=== PATIENT | female | born 1950 | race Caucasian/White ===

== ENCOUNTER → 2016-06-18 | Outpatient (CLI) | payer MEDICARE ==
--- NOTE | 2016-06-18 11:07 | WWHP ---
DATE OF SERVICE: 06/18/2016 CHIEF COMPLAINT: The patient is here for her routine gynecologic exam and mammogram. HPI: This is a 66-year-old, G2, P2 with an LMP of 2002. She is without gynecologic complaints and denies any postmenopausal bleeding. She previously saw Dr. Boland for her gynecologic care and it has been about 2 to 3 years since she had seen him. PAST MEDICAL HISTORY: Elevated cholesterol and seasonal allergies. MEDICATIONS: 1. Lipitor 10 mg daily. 2. Elvi p.r.n. ALLERGIES: No known drug allergies. PAST SURGICAL HISTORY: Left inguinal hernia repair in 2009, breast implants at age 34 and she believes they are silicone, colonoscopy 2012 and this was her second one, tonsillectomy in her 20s. PAST OB HISTORY: Two vaginal deliveries. PAST PERSONNEL RECORDS CLERK HISTORY: She has no history of STDs. She has been menopausal since 2002. SOCIAL HISTORY: She quit smoking in 1984. She has about 5 alcoholic drinks per week and denies drug use. She has been since 1968 and is retired. FAMILY HISTORY: Father had an IA and mother had CHF. She has no family history of cancer of the breast, uterus, ovaries or colon. REVIEW OF SYSTEMS: She believes she gained about 5 pounds over the last year. She denies respiratory, cardiac, or GI problems. PHYSICAL EXAM: Blood pressure 134/79. Height 5 feet 5 inches. Weight 155 pounds. Temperature 96.1, pulse 66. This a well-developed, well-nourished white female who is alert and oriented x3 in no acute distress. HEENT is within normal limits. NECK: Supple without mass or thyromegaly. CHEST AND LUNGS: Clear to auscultation. HEART: Regular rate and rhythm. Breasts are consistent with bilateral implants. The left breast implant is slightly firmer than the right one. She states she has noticed this. There are no palpable masses or tenderness and is no nipple discharge. Axillary exam is negative for adenopathy. BACK: Negative for CVA tenderness. ABDOMEN: Soft, nontender, without palpable masses. PELVIC EXAM: External genitalia reveals mild to moderate atrophy without lesions. Cervix and vagina reveal moderate atrophy without lesions. There is no evidence of prolapse. Bimanual exam is negative for mass. There is slight tenderness at the right inguinal hernia incision area. There does not seem to be any pelvic tenderness. The uterus is midposition and nongravid size. Rectovaginal exam is negative mass or tenderness and is negative for occult blood. EXTREMITIES: Nontender. IMPRESSION: 1. A 66-year-old menopausal female with normal gynecologic exam. 2. History of breast implants. PLAN: 1. Pap smear was performed. 2. Self breast examination was discussed. 3. Mammogram will be done today. 4. Osteoporosis prevention was discussed. I have recommended bone density screening since she states her last one was about 10 years ago. An order slip was given to patient for this. 5. She will return in one year.
--- NOTE | 2016-06-19 07:51 | MM ---
Reason for exam: screening (asymptomatic). Last mammogram was performed 1 year and 11 months ago. History: Patient is postmenopausal. Retro-pectoral silicone gel implants in both breasts, 1987. Physical Findings: A clinical breast exam by your physician is recommended on an annual basis and results should be correlated with mammographic findings. MG 3D Screen Mammo Imp/Cad Bilateral CC and MLO view(s) were taken. Prior study comparison: July 07, 2014, bilateral MG screening mammo implant/CAD. February 03, 2012, CAD bilateral diagnostic mammogram. The breast tissue is heterogeneously dense. This may lower the sensitivity of mammography. No suspicious calcifications are seen. There is chronic nodularity in the right breast. There is no dominant lesion. Bilateral breast implants with left breast appearing ruptured. This finding is changed when compared with previous exams. ASSESSMENT: Benign, BI-RAD 2 RECOMMENDATION: Routine screening mammogram of both breasts in 1 year.
== END | disposition home or self-care (01) ==
LOC: WWCWWP 09:06
PROVIDERS: ATTEND Obstetrics & Gynecology
DX: Z12.31 Encounter for screening mammogram for malignant neoplasm of breast (principal)
CPT/HCPCS: 77063; G0202

== ENCOUNTER → 2016-07-22 | Outpatient (CLI) | payer MEDICARE ==
[2016-07-22 15:36] LABS: Basophils % (A) 0 %; CH 29.9; CHCM 32.7; Eosinophils # (A) 0.1 k/uL (0-0.7); Eosinophils % (A) 1 %; HCT 46.1 % (34.0-46.0); HDW 2.27; HGB 15.1 gm/dL (11.4-16.0); Luc % (Auto) 3; Lymphocytes # (A) 3.1 k/uL (1.0-4.8); Lymphocytes % (A) 34 %; MCHC 32.7 g/dL (31.0-37.0); MCV 91.7 fL (80.0-100.0); Mean Platelet Volume 6.7; Monocytes # (A) 0.7 k/uL (0-1.0); Monocytes % (A) 7 %; Neutrophils % (A) 54 %; RBC 5.03 m/uL (3.80-5.40); RDW 13.2 % (11.5-15.5); WBC 9.2 k/uL (3.8-10.6); WBC (Perox) 8.88
== END | disposition home or self-care (01) ==
LOC: LABPAT 15:10
PROVIDERS: ATTEND Obstetrics & Gynecology
DX: Z01.810 Encounter for preprocedural cardiovascular examination (principal); Z01.818 Encounter for other preprocedural examination; Z01.812 Encounter for preprocedural laboratory examination; R87.613 High grade squamous intraepithelial lesion on cytologic smear of cervix (HGSIL)
CPT/HCPCS: 85025; 93005

== ENCOUNTER 2016-08-06 08:22 | Day surgery (SDC) | payer MEDICARE ==
[2016-08-01 14:05] VITALS: BMI 24.2
[~2016-08-06 08:22] MED LIST: DEXAMETHASONE SOD PHOSPHATE 10 MG/ML 1 ML VIAL IV ONE; HYDROmorphone 1 MG/ML 1 ML SYRINGE IVP PRN; LACTATED RINGERS 1,000 ML IV SCH; MIDAZOLAM 2 MG/2 ML VIAL IV PRN; ONDANSETRON 4 MG/2 ML VIAL IVP ONE; Pre Op ABX Message 1 EACH MISC MISCELLANE ONE
[2016-08-06] MEDS ORDERED: LIDOCAINE 1% 20 ML VIAL (10MG/ML) FOR IV START INTRADERMA ONE (09:10)
[2016-08-06] MEDS ORDERED: SIMETHICONE 80 MG CHEWABLE PO PRN (09:39)
[2016-08-06] MEDS ORDERED: ONDANSETRON 4 MG/2 ML VIAL IVP PRN (09:39)
[2016-08-06] MEDS ORDERED: KETOROLAC 30 MG/ML 1 ML VIAL IVP PRN (09:39)
[2016-08-06] MEDS ORDERED: METOCLOPRAMIDE 5 MG/ML 2 ML VIAL IVP PRN (09:39)
[2016-08-06] MEDS ORDERED: IBUPROFEN 600 MG TAB PO PRN (09:39)
[2016-08-06] MEDS ORDERED: Acetaminophen-Codeine 300-30mg TAB PO PRN ×2 (09:39)
[2016-08-06] MEDS ORDERED: diphenhydrAMINE 50 MG/ML 1 ML VIAL IVP PRN (09:39)
[2016-08-06] MEDS ORDERED: PROPOFOL 10 MG/ML 20 ML VIAL IV ONE (09:40)
[2016-08-06] MEDS ORDERED: LIDOCAINE 1% INJ 10MG/ML (20 ML MDV) ONE (09:40)
[2016-08-06] MEDS ORDERED: KETOROLAC 30 MG/ML 1 ML VIAL ONE (09:40)
[2016-08-06] MEDS ORDERED: fentaNYL (PF) 50 MCG/ML 2 ML AMP ONE (09:40)
[2016-08-06] MEDS ORDERED: LACTATED RINGERS 1,000 ML IV SCH (09:45)
[2016-08-06] MEDS ORDERED: IODINE/POTASS IOD (LUGOLS) BTL TOPICAL ONE (09:55)
[2016-08-06] MEDS ORDERED: FERRIC SUBSULFATE (MONSELS) JAR TOPICAL ONE (09:59)
--- NOTE | 2016-08-06 10:12 | P.OP ---
Date of Procedure: 08/06/16 Preoperative Diagnosis: #1. Endocervical TERESA 2-3 Postoperative Diagnosis: Same Procedure(s) Performed: #1. Cold knife conization of the cervix Implants: Anesthesia: other (Gen. by LMA) Surgeon: Keegan Boland Estimated Blood Loss (ml): 10 IV fluids (ml): 400 Urine output (ml): 20 Pathology: other (Cervical cone, incidentally opened at 9:00) Condition: stable Disposition: PACU Indications for Procedure: Operative Findings: The cervix was noted to be relatively flush with the vaginal apex consistent with her postmenopausal status. Staining with Lugol's iodine failed to demonstrate any nonstaining tissue. A cervical cone was taken to a depth of approximately 2 cm x 1.5 cm wide the. The cone was taken intact but incidentally opened during removal at 9:00. Description of Procedure: The patient was prepped and draped in usual fashion after general anesthesia was administered by the anesthesiologist. A weighted speculum was placed and the bladder drained of approximately 20 mL of clear liane urine. The cervix was grasped at the anterior lip with a single-tooth tenaculum and cervical stay sutures placed from 10:00 to 8:00 at the cervicovaginal junction and 2:00 to 4: 00 where they were firmly tied down using 0 Vicryl. The cervix was stained with Lugol's iodine and there was noted to be no nonstaining areas. A uterine sound was placed through the cervix to the fundus of the uterus and sounded to approximately 7-8 cm. This was used as a guide for the scalpel to create a cone -shaped area around the cervix to a depth of approximately 2 cm. Once this was created, the sound was removed and the cone grasped anterior to posterior with an Allis clamp. It was then divided at its base of. It did appear to be to a depth of at least 2 cm with a width of approximately 1/2 cm in either direction. Examination of the specimen after removal demonstrated that it had been incidentally opened at 9:00. The base of the cone was then thoroughly cauterized with excellent hemostasis. One application of Monsel's solution was used as well at which time there was no ongoing bleeding. The cervical stay sutures were left in place but trimmed short. Estimated blood loss for the case was 10 mL or less. There were no complications. All sponge, instrument, and needle counts were correct. The patient tolerated the procedure well and proceeded to the recovery room in stable condition.
[2016-08-06 10:22] VITALS: TEMP 97.5
[2016-08-06 11:27] VITALS: BP 128/66; PULSE 60; RESP 18
== END 2016-08-06 11:21 | disposition home or self-care (01) ==
LOC: OR 08:22
PROVIDERS: ATTEND Obstetrics & Gynecology
DX: R87.613 High grade squamous intraepithelial lesion on cytologic smear of cervix (HGSIL) (principal); Z87.891 Personal history of nicotine dependence
CPT/HCPCS: 88307; 57520; J2250; J1100; J2405; J2001; J3010; J1885; J2704

== ENCOUNTER → 2017-08-06 | Outpatient (CLI) | payer MEDICARE ==
--- NOTE | 2017-08-06 08:04 | US ---
EXAMINATION TYPE: US duplex aorta DATE OF EXAM: 08/06/2017 COMPARISON: NONE CLINICAL HISTORY: Z13.6 SCREENING FOR CARDIOVASCULAR DX. Family history of AAA EXAM MEASUREMENTS: Abdominal Aorta: Proximal: 2.1 x 2.3 Mid: 1.8 x 1.9 Distal: 1.6 x 1.5 Bifurcation: Right: 1.0 x 0.7 Left: 1.0 x 0.9 IMPRESSION: Some atherosclerotic changes visualized. No sonographic evidence for AAA.
--- NOTE | 2017-08-06 11:26 | BD ---
EXAMINATION TYPE: Axial Bone Density DATE OF EXAM: 08/06/2017 COMPARISON: NONE CLINICAL HISTORY: Z78.0 Post menopausal State Height: 65 IN Weight: 149 LBS RISK FACTORS HISTORY OF: Active: YES Postmenopausal woman: AGE 52 EXAM MEASUREMENTS: Bone mineral densitometry was performed using the [employer] System. Bone mineral density as measured about the Lumbar spine is: ----- L1-L4(G/cm2): 1.322 T Score Values are as follows: ----- L2: 0.8 ----- L3: 1.7 ----- L4: 2.0 ----- L1-L4: 1.2 Bone mineral density BASELINE Bone mineral density about the R hip (g/cm2): 0.911 Bone mineral density about the L hip (g/cm2): 0.907 T Score values are as follows: -----R Neck: -0.9 -----L Neck: -0.9 -----R Total: -0.6 -----L Total: -0.8 Bone mineral density BASELINE IMPRESSION: No evidence for osteoporosis or osteopenia NOTE: T-SCORE=SD OF THE YOUNG ADULT MEAN.
--- NOTE | 2017-08-07 13:48 | MM ---
Reason for exam: screening (asymptomatic). Last mammogram was performed 1 year and 2 months ago. History: Patient is postmenopausal. Retro-pectoral silicone gel implants in both breasts, 1987. Physical Findings: A clinical breast exam by your physician is recommended on an annual basis and results should be correlated with mammographic findings. MG 3D Screen Mammo Imp/Cad Bilateral CC, MLO, and ID view(s) were taken. Prior study comparison: June 18, 2016, bilateral MG 3d screen mammo imp/cad. July 07, 2014, bilateral MG screening mammo implant/CAD. The breast tissue is heterogeneously dense. This may lower the sensitivity of mammography. Bilateral implants are intact. Stellate density upper outer right breast 4.8cm from nipple. This finding is changed when compared with previous exams. ASSESSMENT: Incomplete: need additional imaging evaluation, BI-RAD 0 RECOMMENDATION: Special view mammogram of the right breast. If lesion persists on supplemental views, image directed ultrasound is recommended. [facility] will attempt to contact patient to return for supplemental views and ultrasound if indicated.
== END | disposition home or self-care (01) ==
LOC: RADUSWWP 07:28
PROVIDERS: ATTEND Family Medicine
DX: Z12.31 Encounter for screening mammogram for malignant neoplasm of breast (principal); I70.0 Atherosclerosis of aorta; Z78.0 Asymptomatic menopausal state
CPT/HCPCS: 77063; 77067; 77080; 93979

== ENCOUNTER → 2017-08-12 | Outpatient (CLI) | payer MEDICARE ==
--- NOTE | 2017-08-12 10:50 | MM ---
Reason for exam: additional evaluation requested from abnormal screening. Last mammogram was performed less than 1 month ago. History: Patient is postmenopausal. Retro-pectoral silicone gel implants in both breasts, 1987. Physical Findings: Nurse did not find any significant physical abnormalities on exam. MG 3D Work Up W/Cad W/Imp RT Spot compression CC, spot compression MLO, ML, and ID view(s) were taken of the right breast. Prior study comparison: August 06, 2017, bilateral MG 3d screen mammo imp/cad. June 18, 2016, bilateral MG 3d screen mammo imp/cad. The breast tissue is heterogeneously dense. This may lower the sensitivity of mammography. Benign appearing calcifications in the right breast. No significant changes when compared with prior studies. ASSESSMENT: Probably benign, BI-RAD 3 RECOMMENDATION: Follow-up diagnostic mammogram of the right breast in 6 months.
== END | disposition home or self-care (01) ==
LOC: RADMAMWWP 08:16
PROVIDERS: ATTEND Family Medicine
DX: R92.8 Other abnormal and inconclusive findings on diagnostic imaging of breast (principal)
CPT/HCPCS: 77065; G0279; 77061

== ENCOUNTER 2017-10-15 12:14 | Day surgery (SDC) | payer MEDICARE ==
[2017-10-15 12:42] VITALS: RESP 16
[2017-10-15] MEDS ORDERED: ALPRAZolam 0.25 MG TAB PO STA (12:45)
--- NOTE | 2017-10-15 14:18 | US ---
ULTRASOUND GUIDED FNA THYROID BIOPSY: CLINICAL HISTORY: Request for FNA of the 1.1 cm left, 2.2 cm right, 2.4 cm left thyroid nodule FINDINGS: The procedure was explained to the patient. The risks, complications, benefits and alternatives were discussed and any questions were answered. Informed consent was obtained. Patient was placed supin e on the ultrasound table and prepped and draped in the usual sterile fashion. Utilizing a 25 gauge needle, five passes were made into the 3 requested thyroid nodules. Patient was stable throughout the procedure. Pathology is pending. All elements of maximal barrier technique were utilized. IMPRESSION: 1. Successful ultrasound guided FNA thyroid biopsy.
[2017-10-15 14:27] VITALS: BP 136/68; PULSE 58
== END 2017-10-15 14:00 | disposition home or self-care (01) ==
LOC: RADPROMAIN 12:14
PROVIDERS: ATTEND Otolaryngology Plastic Surgery within the Head & Neck
DX: E04.2 Nontoxic multinodular goiter (principal)
CPT/HCPCS: 10022; 36415; 76942; 88173; 88305

== ENCOUNTER → 2017-10-29 | Outpatient (CLI) | payer MEDICARE ==
--- NOTE | 2017-10-29 16:21 | US ---
EXAMINATION TYPE: US thyroid st tissue head/neck DATE OF EXAM: 10/29/2017 COMPARISON: Us thyroid CLINICAL HISTORY: Cervical lymphadenopathy R59.0. Patient diagnosed with papillary CA thyroid from re cent thyroid FNA here; no enlarged palpable nodes per patient Bilateral neck scanned: multiple small lymph nodes are seen superior and lateral to bilateral thyroid gland with largest noted superior to left thyroid = 0.9 x 0.6 x 0.3cm. IMPRESSION: Cervical lymph nodes as noted.
== END | disposition home or self-care (01) ==
LOC: RADUSMAIN 15:35
PROVIDERS: ATTEND Otolaryngology Plastic Surgery within the Head & Neck
DX: R59.0 Localized enlarged lymph nodes (principal)
CPT/HCPCS: 76536

== ENCOUNTER → 2018-02-12 | Outpatient (CLI) | payer MEDICARE ==
--- NOTE | 2018-02-12 11:37 | MM ---
Reason for exam: follow-up at short interval from prior study. Last mammogram was performed 6 months ago. History: Patient is postmenopausal and has history of other cancer at age 67. Retro-pectoral silicone gel implants in both breasts, 1988. Physical Findings: Nurse did not find any significant physical abnormalities on exam. MG 3D Diag Mammo Imp W/Cad RT CC, MLO, and ID view(s) were taken of the right breast. Prior study comparison: August 12, 2017, right breast MG 3d work up w/cad w/imp RT. August 06, 2017, bilateral MG 3d screen mammo imp/cad. The breast tissue is heterogeneously dense. This may lower the sensitivity of mammography. There is no discrete abnormality. Subpectoral implant right breast redemonstrated. These results were verbally communicated with the patient and result sheet given to the patient on 02/12/18. ASSESSMENT: Benign, BI-RAD 2 RECOMMENDATION: Return to routine screening mammogram schedule for both breasts. Back on schedule for August 2018.
== END ==
LOC: RADMAMWWP 10:07
PROVIDERS: ATTEND Family Medicine
DX: R92.8 Other abnormal and inconclusive findings on diagnostic imaging of breast (principal)
CPT/HCPCS: 77065; G0279; 77061

== ENCOUNTER → 2018-09-28 | Outpatient (CLI) | payer MEDICARE ==
--- NOTE | 2018-09-30 07:31 | MM ---
Reason for exam: screening (asymptomatic). Last mammogram was performed 8 months ago. History: Patient is postmenopausal and has history of other cancer at age 67. Retro-pectoral silicone gel implants in both breasts, 1988. Took hormonal contraceptives for 5 years. MG 3D Screen Mammo Imp/Cad Bilateral CC, MLO, and ID view(s) were taken. Prior study comparison: February 12, 2018, right breast MG 3d diag mammo imp w/cad RT. August 12, 2017, right breast MG 3d work up w/cad w/imp RT. There is a new medial post depth left breast asymmetry. There is no suspicious right abnormality. There are bilateral retropectoral silicone implants with abnormal undulating contours. Manage on a clinical basis abnormal contour of the breast implants. MRI implant protocol could evaluate for rupture. ASSESSMENT: Incomplete: need additional imaging evaluation, BI-RAD 0 RECOMMENDATION: Special view mammogram of the left breast. [facility] will attempt to contact patient to return for supplemental views. Clinical management of both breasts.
== END | disposition home or self-care (01) ==
LOC: RADMAMWWP 07:30
PROVIDERS: ATTEND Obstetrics & Gynecology
DX: Z12.31 Encounter for screening mammogram for malignant neoplasm of breast (principal); Z98.82 Breast implant status
CPT/HCPCS: 77063; 77067

== ENCOUNTER → 2018-10-09 | Outpatient (CLI) | payer MEDICARE ==
--- NOTE | 2018-10-12 09:14 | USB ---
Reason for exam: additional evaluation requested from abnormal screening. History: Patient is postmenopausal and has history of other cancer at age 67. Retro-pectoral silicone gel implants in both breasts, 1987. Took hormonal contraceptives for 5 years. Physical Findings: Nurse did not find any significant physical abnormalities on exam. US Breast Workup Limited LT Left limited breast ultrasound including focal area of concern, retroareolar and axilla demonstrates a 0.8 x 0.3 x 0.7cm oval, hypoechoic lesion at 9 o'clock, corresponds with mammographic findings. These results were verbally communicated with the patient and result sheet given to the patient on 10/09/18. ASSESSMENT: Suspicious, BI-RAD 4 RECOMMENDATION: Breast MRI of both breasts. Ultrasound core biopsy of the left breast. Work up for implant rupture with MRI recommended based on mammographic appearance. Called Dr. Burton with mammographic findings. Patient choosing own surgeon and will notify Dr. Burton's office once decision is made. PRELIMINARY REPORT CALLED AND FAXED TO DR. BURTON ON 10/12/18.
== END | disposition home or self-care (01) ==
LOC: RADMAMWWP 10:08
PROVIDERS: ATTEND Obstetrics & Gynecology
DX: R92.8 Other abnormal and inconclusive findings on diagnostic imaging of breast (principal)

== ENCOUNTER → 2019-11-18 | Outpatient (CLI) | payer MEDICARE | END | disposition home or self-care (01) | LOC: LABWHC1 13:04 | PROVIDERS: ATTEND Internal Medicine Endocrinology, Diabetes & Metabolism | DX: C73 Malignant neoplasm of thyroid gland (principal) | CPT/HCPCS: 36415; 84432; 84443; 86800 ==

== ENCOUNTER → 2019-11-29 | Day surgery (SDC) | payer MEDICARE ==
[2019-11-29 10:16] VITALS: RESP 18
[2019-11-29] MEDS: THYROTROPIN ALFA 1.1 MG VIAL IM NR (10:31)
[2019-11-30] MEDS: THYROTROPIN ALFA 1.1 MG VIAL IM NR (10:26)
[2019-11-30 10:31] VITALS: BP 115/69; PULSE 98; TEMP 98.3
--- NOTE | 2019-12-02 22:44 | NM ---
EXAMINATION TYPE: NM I-131 Whole Body Imaging DATE OF EXAM: 12/02/2019 COMPARISON: None HISTORY: Thyroid abnormality, C 73 TECHNIQUE: 3.23 mCi iodine-131 orally. FINDINGS: There is some focal radiotracer accumulation within the right thyroid bed region. Suspicious uptake within the salivary glands is not identified. There is normal excretion through the colon. IMPRESSION: 1. Focal radiotracer in the right thyroid bed. 2. No suspicious distal abnormal uptake to suggest metastatic disease.
== END ==
LOC: RADNMMAIN 09:48
PROVIDERS: ATTEND Internal Medicine Endocrinology, Diabetes & Metabolism
DX: C73 Malignant neoplasm of thyroid gland (principal); E89.0 Postprocedural hypothyroidism; E78.5 Hyperlipidemia, unspecified; Z79.890 Hormone replacement therapy; Z98.890 Other specified postprocedural states; Z87.19 Personal history of other diseases of the digestive system; Z87.891 Personal history of nicotine dependence; Z92.3 Personal history of irradiation; Z83.49 Family history of other endocrine, nutritional and metabolic diseases; Z83.3 Family history of diabetes mellitus; Z82.49 Family history of ischemic heart disease and other diseases of the circulatory system
CPT/HCPCS: 96372; J3240; 78018

== ENCOUNTER → 2019-12-27 | Outpatient (CLI) | payer MEDICARE ==
--- NOTE | 2019-12-27 16:16 | US ---
EXAMINATION TYPE: US thyroid st tissue head/neck DATE OF EXAM: 12/27/2019 COMPARISON: 10/29/2017 CLINICAL HISTORY: 69-year-old female Malignant neoplasm of thyroid gland C73. Thyroid cancer, pt stat es thyroid removed in 2017 TECHNIQUE: Multiple sonographic images of the thyroidectomy bed were performed. FINDINGS: Bilateral neck scanned, no evidence of lymphadenopathy. The thyroidectomy bed appeared wnl. IMPRESSION: The thyroidectomy bed appears clear. No lymphadenopathy identified in the neck.
== END | disposition home or self-care (01) ==
LOC: RADUSWWP 14:51
PROVIDERS: ATTEND Internal Medicine Endocrinology, Diabetes & Metabolism
DX: C73 Malignant neoplasm of thyroid gland (principal); Z90.89 Acquired absence of other organs
CPT/HCPCS: 76536

== ENCOUNTER → 2020-05-12 | Outpatient (CLI) | payer MEDICARE | END | disposition home or self-care (01) | LOC: LABWHC1 10:28 | PROVIDERS: ATTEND Internal Medicine Endocrinology, Diabetes & Metabolism | DX: C73 Malignant neoplasm of thyroid gland (principal) | CPT/HCPCS: 36415; 84432; 84443; 86800 ==

== ENCOUNTER → 2020-08-15 | Outpatient (CLI) | payer MEDICARE ==
--- NOTE | 2020-08-17 09:04 | MM ---
Reason for exam: screening (asymptomatic). Last mammogram was performed 1 year and 11 months ago. History: Patient is postmenopausal and has history of other cancer at age 67. Implant Removal of both breasts, November 2018. Retro-pectoral silicone gel implants in both breasts, 1988. Took hormonal contraceptives for 5 years. Physical Findings: A clinical breast exam by your physician is recommended on an annual basis and results should be correlated with mammographic findings. MG 3D Screening Mammo W/Cad Bilateral CC and MLO view(s) were taken. Prior study comparison: September 28, 2018, bilateral MG 3d screen mammo imp/cad. February 12, 2018, right breast MG 3d diag mammo imp w/cad RT. There is a lobulated mass in the inner likely lower left breast. Ultrasound 7-10 o'clock is recommended in the left breast. Interval removal of bilateral implants. This finding is changed when compared with previous exams. ASSESSMENT: Incomplete: need additional imaging evaluation, BI-RAD 0 RECOMMENDATION: Ultrasound of the left breast. [facility] will attempt to contact patient to return for ultrasound. SUSAN
== END | disposition home or self-care (01) ==
LOC: RADMAMWWP 09:12
PROVIDERS: ATTEND Obstetrics & Gynecology
DX: Z12.31 Encounter for screening mammogram for malignant neoplasm of breast (principal); Z78.0 Asymptomatic menopausal state
CPT/HCPCS: 77063; 77067

== ENCOUNTER → 2020-09-08 | Outpatient (CLI) | payer MEDICARE | END | disposition home or self-care (01) ==

== ENCOUNTER → 2021-02-06 | Outpatient (CLI) | payer MEDICARE | END | disposition home or self-care (01) | LOC: LABWHC1 14:15 | PROVIDERS: ATTEND Internal Medicine Endocrinology, Diabetes & Metabolism | DX: C73 Malignant neoplasm of thyroid gland (principal) | CPT/HCPCS: 36415; 84432; 84443; 86800 ==

== ENCOUNTER → 2021-06-14 | Outpatient (CLI) | payer MEDICARE | END | disposition home or self-care (01) | LOC: LABWHC1 13:41 | PROVIDERS: ATTEND Internal Medicine Endocrinology, Diabetes & Metabolism | DX: C73 Malignant neoplasm of thyroid gland (principal) | CPT/HCPCS: 36415; 84432; 84443; 86800 ==

== ENCOUNTER → 2021-09-20 | Outpatient (CLI) | payer MEDICARE ==
--- NOTE | 2021-09-20 14:52 | MM ---
Reason for Exam: Follow-up at short interval from prior study. Last mammogram was performed 1 year(s) and 1 month(s) ago. Patient History: Menarche at age 15. First Full-Term at age 20. Postmenopausal. Other cancer, age 67. Patient used Hormonal Contraceptives for 5 years. 11/2018, Bilateral Implant Removal. 1987, Bilateral Implants. Risk Values: Jerri 5 year model risk: 1.4%. NCI Lifetime model risk: 3.8%. Prior Study Comparison: 02/12/2018 Right Diagnostic Mammogram, [facility]. 09/28/2018 Bilateral Screening Mammogram, [facility]. 08/15/2020 Bilateral Screening Mammogram, [facility]. Tissue Density: Left: The breast tissue is heterogeneously dense. This may lower the sensitivity of mammography. Findings: Analyzed By CAD. In the left breast, there is a 9 mm ovoid nodular focal asymmetry which appears to localize to the 9:00 position middle depth. This remains unchanged for 11 months but not seen previously. Some prominent rounded left axillary lymph nodes measuring up to 1.3 cm. In the right breast, there is subareolar focal asymmetry which disperses on additional views. No significant change from prior exams. Overall Assessment: Incomplete: need additional imaging evaluation, BI-RAD 0 Management: Diagnostic Breast Ultrasound of the left breast. Electronically signed and approved by: Keron Shultz M.D. Radiologist
--- NOTE | 2021-09-20 14:54 | USB ---
Patient History: Menarche at age 15. First Full-Term at age 20. Postmenopausal. Other cancer, age 67. Patient used Hormonal Contraceptives for 5 years. 11/2018, Bilateral Implant Removal. 1987, Bilateral Implants. Risk Values: Jerri 5 year model risk: 1.4%. NCI Lifetime model risk: 3.8%. Technique: Method: Whole Breast Handheld. Patient Position: Supine. Prior Study Comparison: 02/12/2018 Right Diagnostic Mammogram, [facility]. 09/28/2018 Bilateral Screening Mammogram, [facility]. 08/15/2020 Bilateral Screening Mammogram, [facility]. Findings: The whole breast of the left breast, the axilla of the left breast and the retroareolar of the left breast were scanned. Multiple areas of possible silicone are redemonstrated particularly in the axilla measuring up to 1.3 cm as seen on 09/08/2020. Deep within the medial left breast, 9:00 position, 7 cm from the nipple, additional possible echogenic silicone is present at a posterior depth. Some associated cystic change measuring up to 6 mm are suggested in this region; appearance unchanged from 09/08/2020. No other solid or cystic lesion. Continued follow-up for the nodular focal asymmetry in the medial aspect of the left breast, stable for 13 months. Overall Assessment: Probably benign, BI-RAD 3 Management: Diagnostic Mammogram of both breasts in 1 year. 1. Additional diagnostic one year follow-up mammogram of both breasts (total 2 year follow-up left breast and annual exam of the right breast). 2. Patient should continue monthly self breast exams. A clinical breast exam by your physician is recommended on an annual basis. 3. This exam should not preclude additional follow-up of suspicious palpable abnormalities. Electronically signed and approved by: Keron Shultz M.D. Radiologist
== END | disposition home or self-care (01) ==
LOC: RADMAMWWP 12:52
PROVIDERS: ATTEND Family Medicine
DX: R92.8 Other abnormal and inconclusive findings on diagnostic imaging of breast (principal)
CPT/HCPCS: 77066; 76641; G0279; 77062

== ENCOUNTER 2021-10-12 10:37 | Day surgery (SDC) | payer MEDICARE ==
[2021-10-11 09:33] VITALS: BMI 24.2
[~2021-10-12 10:37] MED LIST changes: -DEXAMETHASONE SOD PHOSPHATE 10 MG/ML 1 ML VIAL IV ONE; -HYDROmorphone 1 MG/ML 1 ML SYRINGE IVP PRN; +LIDOCAINE 1% (10MG/ML) FOR IV START INTRADERMA PRN; -MIDAZOLAM 2 MG/2 ML VIAL IV PRN; -ONDANSETRON 4 MG/2 ML VIAL IVP ONE; -Pre Op ABX Message 1 EACH MISC MISCELLANE ONE
[2021-10-12 10:57] VITALS: TEMP 97.4
[2021-10-12] MEDS ORDERED: PROPOFOL 10 MG/ML 20 ML VIAL IV ONE (13:33)
[2021-10-12] MEDS ORDERED: LIDOCAINE 2% INJ 20 MG/ML (2 ML VIAL) ONE (13:33)
--- NOTE | 2021-10-12 14:02 | P.PCN ---
Date of Procedure: 10/12/21 Procedure(s) Performed: BRIEF HISTORY: Patient is a 71-year-old pleasant white female scheduled for an elective colonoscopy as a part of evaluation of positive cologuard. PROCEDURE PERFORMED: Colonoscopy. PREOPERATIVE DIAGNOSIS: Positive cologuard.. IV sedation per Anesthesia. PROCEDURE: After informed consent was obtained, the patient, was brought into the endoscopy unit. IV sedation was administered by Anesthesia under continuous monitoring. Digital rectal examination was normal. Initially the Olympus CF-160 flexible video colonoscope was then inserted in the rectum, gradually advanced into the cecum without any difficulty. Careful examination was performed as the scope was gradually being withdrawn. Ileocecal valve and the appendiceal orifice were visualized and appeared normal. Prep was excellent. Mucosa of the cecum, ascending colon, transverse colon, descending colon, sigmoid colon, and rectum appeared normal. Retroflexion was performed in the rectum and no lesions were seen. The patient tolerated the procedure well. IMPRESSION: Normal-appearing colon from rectum to cecum with no evidence of colorectal neoplasia. RECOMMENDATIONS: Findings of this examination were discussed with the patient as well as her family. She was advised to have a repeat screening colonoscopy a t age 79..
[2021-10-12 14:26] VITALS: BP 108/67; PULSE 106; RESP 18
== END 2021-10-12 15:01 | disposition home or self-care (01) ==
LOC: ORWHC2ENDO 10:37
PROVIDERS: ATTEND Internal Medicine Gastroenterology
DX: R19.5 Other fecal abnormalities (principal); I48.91 Unspecified atrial fibrillation; I10 Essential (primary) hypertension; Z87.891 Personal history of nicotine dependence; E07.9 Disorder of thyroid, unspecified; Z79.890 Hormone replacement therapy; Z79.899 Other long term (current) drug therapy; Z79.01 Long term (current) use of anticoagulants
CPT/HCPCS: 45378; J2704; J2001

== ENCOUNTER → 2021-11-26 | Outpatient (CLI) | payer MEDICARE ==
--- NOTE | 2021-11-26 16:34 | US ---
EXAMINATION TYPE: US thyroid st tissue head/neck DATE OF EXAM: 11/26/2021 COMPARISON: US 2019 CLINICAL HISTORY: 71-year-old female C73 Thyroid ca. Thyroidectomy 2018 Technique: Multiple sonographic images of the thyroidectomy bed. FINDINGS: Thyroid bed appears wnl. No abnormal soft tissue, nodule, or fluid collection is identified. Roll Edge Stitcher Hand notes: Bilateral neck scanned, no evidence of lymphadenopathy. IMPRESSION: The thyroidectomy bed appears clear.
== END | disposition home or self-care (01) ==
LOC: RADUSWWP 12:14
PROVIDERS: ATTEND Internal Medicine Endocrinology, Diabetes & Metabolism
DX: C73 Malignant neoplasm of thyroid gland (principal)
CPT/HCPCS: 76536; 84432; 84443; 86800

== ENCOUNTER → 2022-03-13 | Outpatient (CLI) | payer MEDICARE | END | disposition home or self-care (01) | LOC: LABWHC1 12:26 | PROVIDERS: ATTEND Internal Medicine Endocrinology, Diabetes & Metabolism | DX: C73 Malignant neoplasm of thyroid gland (principal) | CPT/HCPCS: 36415; 84432; 84443; 86800 ==

== ENCOUNTER → 2022-06-24 | Outpatient (CLI) | payer MEDICARE | END | disposition home or self-care (01) | LOC: LABWHC1 11:00 | PROVIDERS: ATTEND Internal Medicine Endocrinology, Diabetes & Metabolism | DX: C73 Malignant neoplasm of thyroid gland (principal) | CPT/HCPCS: 36415; 84432; 84443; 86800 ==

== ENCOUNTER → 2022-10-29 | Outpatient (CLI) | payer MEDICARE ==
--- NOTE | 2022-10-30 10:09 | MM ---
Reason for Exam: Additional evaluation requested from prior study. Last mammogram was performed 2 year(s) and 2 month(s) ago. Patient History: Menarche at age 15. First Full-Term at age 20. Postmenopausal. Other Cancer, age 67. Patient used Hormonal Contraceptives for 5 year. 11/2018, Bilateral Implant Removal. 1987, Bilateral Implants. Risk Values: Jerri 5 year model risk: 1.4%. NCI Lifetime model risk: 3.6%. Prior Study Comparison: 08/15/2020 Bilateral Screening Mammogram, [facility]. 09/08/2020 Left Diagnostic Ultrasound, [facility]. 09/20/2021 Left MG 3D diag mammo w/cad LT, [facility]. 09/20/2021 Left US breast LT, [facility]. Tissue Density: The breast tissue is heterogeneously dense. This may lower the sensitivity of mammography. Findings: Analyzed By CAD. No significant changes when compared with prior studies. Chronic nodularity in the right breast. Overall Assessment: Benign, BI-RAD 2 Management: Screening Mammogram of both breasts in 1 year. Manage on a clinical basis. A clinical breast exam by your physician is recommended on an annual basis and results should be correlated with mammographic findings. This exam should not preclude additional follow-up of suspicious palpable abnormalities. Results were given to the patient verbally at the time of exam. Electronically signed and approved by: Duane Bowens M.D. Radiologis
== END | disposition home or self-care (01) ==
LOC: RADMAMWWP 09:32
PROVIDERS: ATTEND Obstetrics & Gynecology
DX: N63.20 Unspecified lump in the left breast, unspecified quadrant (principal); Z78.0 Asymptomatic menopausal state
CPT/HCPCS: 77066; G0279; 77062

== ENCOUNTER → 2023-01-09 | Outpatient (CLI) | payer MEDICARE ==
--- NOTE | 2023-01-09 13:29 | US ---
EXAMINATION TYPE: US thyroid st tissue head/neck DATE OF EXAM: 01/09/2023 COMPARISON: 11/26/21, 12/27/2019 CLINICAL INDICATION: Female, 72 years old with history of C73 MALIGNANT NEOPLASM OF THYROID GLAND; Th yroidectomy 2018 due to malignancy GLAND SIZE: Right Lobe: Surgically absent Left Lobe: Surgically absent Isthmus Thickness: Surgically absent NODULES RIGHT: # of nodules measured on right: 0 LEFT: # of nodules measured on left: 0 ISTHMUS: # of nodules measured in the isthmus: 0 Bilateral neck scanned, no evidence of lymphadenopathy. IMPRESSION: Postsurgical thyroidectomy without evidence for recurrent disease or lymphadenopathy.
== END | disposition home or self-care (01) ==
LOC: RADUSWWP 13:00
PROVIDERS: ATTEND Internal Medicine Endocrinology, Diabetes & Metabolism
DX: C73 Malignant neoplasm of thyroid gland (principal); E89.0 Postprocedural hypothyroidism
CPT/HCPCS: 76536

== ENCOUNTER → 2023-01-09 | Outpatient (CLI) | payer MEDICARE | END | disposition home or self-care (01) | LOC: LABWHC1 12:58 | PROVIDERS: ATTEND Internal Medicine Endocrinology, Diabetes & Metabolism | DX: C73 Malignant neoplasm of thyroid gland (principal) | CPT/HCPCS: 36415; 84432; 84443; 86800 ==

== ENCOUNTER → 2023-07-15 | Outpatient (CLI) | payer MEDICARE | END | disposition home or self-care (01) | LOC: LABWHC1 11:55 | PROVIDERS: ATTEND Internal Medicine Endocrinology, Diabetes & Metabolism | DX: C73 Malignant neoplasm of thyroid gland (principal) | CPT/HCPCS: 36415; 84432; 84443; 86800 ==

== ENCOUNTER → 2023-10-31 | Outpatient (CLI) | payer MEDICARE ==
--- NOTE | 2023-11-05 07:31 | MM ---
Reason for Exam: Screening (asymptomatic). Last screening mammogram was performed 12 month(s) ago. Patient History: Menarche at age 15. First Full-Term at age 20. Postmenopausal. Patient has history of breast feeding. Other cancer, age 67. Patient used Hormonal Contraceptives for 5 years. 11/2018, Bilateral Implant Removal. 1987, Bilateral Implants. Risk Values: Jerri 5 year model risk: 1.4%. NCI Lifetime model risk: 3.3%. Prior Study Comparison: 08/15/2020 Bilateral Screening Mammogram, [facility]. 09/20/2021 Left MG 3D diag mammo w/cad LT, [facility]. 10/29/2022 Bilateral MG 3D diag mammo w/cad DEV, [facility]. Tissue Density: The breasts are heterogeneously dense, which may obscure small masses. Findings: Analyzed By CAD. Right breast: There is no suspicious group of microcalcifications or new suspicious mass. Left breast: There is no suspicious group of microcalcifications or new suspicious mass. Overall Assessment: Negative, BI-RAD 1 Management: Screening Mammogram of both breasts in [address] [facility] will attempt to contact patient to return for supplemental views and ultrasound if indicated. Patient should continue monthly self-breast exams. A clinical breast exam by your physician is recommended on an annual basis. This exam should not preclude additional follow-up of suspicious palpable abnormalities. Note on Jerri scores and lifetime risk: 1. A Jerri score greater than 3% is considered moderate risk. If this is the case, consider specialist referral to assess eligibility for a risk reducing agent. 2. If overall lifetime risk for the development of breast cancer is 20% or higher, the patient may qualify for future screening with alternating mammogram and breast MRI. Electronically signed and approved by: Albert Godwin DO
== END | disposition home or self-care (01) ==
LOC: RADMAMWWP 10:06
PROVIDERS: ATTEND Internal Medicine Geriatric Medicine
DX: Z12.31 Encounter for screening mammogram for malignant neoplasm of breast
CPT/HCPCS: 77063; 77067

== ENCOUNTER → 2024-01-12 | Outpatient (CLI) | payer MEDICARE ==
--- NOTE | 2024-01-12 12:32 | US ---
EXAMINATION TYPE: US thyroid st tissue head/neck DATE OF EXAM: 01/12/2024 COMPARISON: Ultrasound 01/09/2023 CLINICAL INDICATION: Female, 73 years old with history of C73 MALIGNANT NEOPLASM OF THYROID GLAND; Th yroidectomy, annual follow-up TECHNIQUE: Grayscale and color Doppler imaging of the thyroid gland. FINDINGS: GLAND SIZE: Right Lobe: Surgically absent Left Lobe: Surgically absent Isthmus Thickness: Surgically absent NODULES RIGHT: # of nodules measured on right: 0 LEFT: # of nodules measured on left: 0 ISTHMUS: # of nodules measured in the isthmus: 0 Bilateral neck scanned, no evidence of lymphadenopathy. Normal appearing bilateral thyroid beds. IMPRESSION: 1. No suspicious thyroid nodules 2017 ACR TI-RADS LEVEL: TR-RADS 1 - BENIGN: No FNA *Highest TI-RADS level nodule reported [email or web address] [facility], , 01/12/2024 12:29 PM
[2024-01-12 15:36] LABS: NT-Pro-B-Type Natriuretic Pept 1531 pg/mL (0-125)
[2024-01-12 15:50] LABS: Basophils # (A) 0.04 X 10*3/uL (0.00-0.10); Basophils % (A) 0.8 %; Eosinophils # (A) 0.05 X 10*3/uL (0.04-0.35); HCT 42.1 % (37.2-46.3); HGB 13.3 g/dL (12.0-15.0); Lymphocytes # (A) 1.47 X 10*3/uL (0.90-5.00); Lymphocytes % (A) 29.1 %; MCH 29.2 pg (27.0-32.0); MCHC 31.6 g/dL (32.0-37.0); MCV 92.5 FL (80.0-97.0); Monocytes # (A) 0.65 X 10*3/uL (0.20-1.00); Monocytes % (A) 12.8 %; NRBC Per 100 WBC 0 X 10*3/uL (0.00-0.01); Neutrophils # (A) 2.83 X 10*3/uL (1.80-7.70); Neutrophils % (A) 55.9 %; Platelet Count 244 X 10*3/uL (140-440); RBC 4.55 X 10*6/uL (4.10-5.20); RDW 13.3 % (11.5-14.5); WBC 5.06 X 10*3/uL (4.50-10.00)
[2024-01-12 17:56] LABS: ALT 28 U/L (8-44); AST 24 U/L (13-35); Albumin 4.3 g/dL (3.8-4.9); Albumin/Globulin Ratio 1.79 Ratio (1.60-3.17); Alkaline Phosphatase 81 U/L (41-126); Blood Urea Nitrogen 15.5 mg/dL (9.0-27.0); Calcium 9.1 mg/dL (8.7-10.3); Chloride 104 mmol/L (96-109); Creatine Kinase 102 U/L (26-186); Globulin 2.4 g/dL (1.6-3.3); Glucose 95 mg/dL (70-110); LDL Cholesterol,Calculated 145.7 mg/dL (0.0-131.0); Potassium 4.4 mmol/L (3.5-5.5); Sodium 140 mmol/L (135-145); T4, Free (Free Thyroxine) 1.36 ng/dL (0.80-1.80); Total Bilirubin 0.6 mg/dL (0.3-1.2); Total Protein 6.7 g/dL (6.2-8.2)
== END | disposition home or self-care (01) ==
LOC: RADUSWWP 09:00
PROVIDERS: ATTEND Internal Medicine Endocrinology, Diabetes & Metabolism
DX: C73 Malignant neoplasm of thyroid gland (principal); E04.1 Nontoxic single thyroid nodule
CPT/HCPCS: 76536; 80053; 80061; 82550; 83880; 84432; 84439; 84443; 85025; 86800

== ENCOUNTER → 2024-07-12 | Outpatient (CLI) | payer MEDICARE | END | disposition home or self-care (01) | LOC: LABWHC1 11:48 | PROVIDERS: ATTEND Internal Medicine Endocrinology, Diabetes & Metabolism | DX: C73 Malignant neoplasm of thyroid gland (principal) | CPT/HCPCS: 36415; 84432; 84443; 86800 ==

== ENCOUNTER → 2024-09-13 | Outpatient (CLI) | payer MEDICARE ==
[2024-09-13 20:02] LABS: Basophils # (A) 0.04 X 10*3/uL (0.00-0.10); Basophils % (A) 0.7 %; Eosinophils # (A) 0.05 X 10*3/uL (0.04-0.35); Eosinophils % (A) 0.8 %; HCT 42.8 % (37.2-46.3); HGB 13.6 g/dL (12.0-15.0); Immature Grans, Automated 0.30 %; Lymphocytes # (A) 1.69 X 10*3/uL (0.90-5.00); Lymphocytes % (A) 28.6 %; MCH 29.3 pg (27.0-32.0); MCHC 31.8 g/dL (32.0-37.0); MCV 92.2 FL (80.0-97.0); Monocytes # (A) 0.75 X 10*3/uL (0.20-1.00); Monocytes % (A) 12.7 %; NRBC Per 100 WBC 0 X 10*3/uL (0.00-0.01); Neutrophils # (A) 3.35 X 10*3/uL (1.80-7.70); Neutrophils % (A) 56.9 %; Platelet Count 257 X 10*3/uL (140-440); RBC 4.64 X 10*6/uL (4.10-5.20); RDW 13.4 % (11.5-14.5); WBC 5.90 X 10*3/uL (4.50-10.00)
[2024-09-13 21:34] LABS: ALT 47 U/L (8-44); AST 29 U/L (13-35); Albumin 4.5 g/dL (3.8-4.9); Albumin/Globulin Ratio 1.73 Ratio (1.60-3.17); Alkaline Phosphatase 83 U/L (41-126); Anion Gap 11.10 mmol/L (4.00-12.00); BUN/Creat Ratio 17.67 Ratio (12.00-20.00); Blood Urea Nitrogen 15.9 mg/dL (9.0-27.0); Calcium 9.3 mg/dL (8.7-10.3); Carbon Dioxide 26.9 mmol/L (21.6-31.8); Chloride 103 mmol/L (96-109); Cholesterol 221.00 mg/dL (0.00-200.00); Globulin 2.6 g/dL (1.6-3.3); Glucose 91 mg/dL (70-110); HDL Cholesterol 58.10 mg/dL (40.00-60.00); LDL Cholesterol,Calculated 140.3 mg/dL (0.0-131.0); Potassium 5.3 mmol/L (3.5-5.5); Sodium 141 mmol/L (135-145); T4, Free (Free Thyroxine) 1.63 ng/dL (0.80-1.80); Total Protein 7.1 g/dL (6.2-8.2); Triglycerides 113.00 mg/dL (0.00-149.00); VLDL Calculation 22.60 mg/dL (5.00-40.00)
[2024-09-13 22:10] LABS: NT-Pro-B-Type Natriuretic Pept 881 pg/mL (0-450)
== END | disposition home or self-care (01) ==
LOC: LABWHC1 12:50
PROVIDERS: ATTEND Internal Medicine Geriatric Medicine
DX: I48.0 Paroxysmal atrial fibrillation (principal); I42.9 Cardiomyopathy, unspecified; C73 Malignant neoplasm of thyroid gland; R73.9 Hyperglycemia, unspecified
CPT/HCPCS: 36415; 80053; 80061; 83036; 83880; 84439; 84443; 85025